=== PATIENT | female | born 1975 | race African-American/Black ===

== ENCOUNTER 2024-10-15 21:08 | Inpatient (IN) | payer BC, MEDICAID ==
[~2024-10-15] VITALS: Ht 170.2 cm; Wt 152.6 kg
[2024-10-15 22:05] LABS: HEMATOCRIT. 53.7 % (36.0-48.0); MEAN CORPUSCULAR HEMOGLOBIN 26.7 pg (28.0-32.0); MEAN CORPUSCULAR HGB CONC 26.2 g/dL (31.0-37.0); MEAN CORPUSCULAR VOLUME 101.9 fL (81.0-99.0); MEAN PLATELET VOLUME 11.7 fl (7.4-10.4); PLATELET 284 x1000/uL (130-400); RED BLOOD CELL COUNT 5.27 mill/uL (4.2-5.4); RED CELL DISTRIBUTION WIDTH 15.4 % (11.6-14.6); WHITE BLOOD COUNT 15.1 x1000/uL (4.5-11.0)
[2024-10-15 22:14] LABS: CHLORIDE 100 mEq/L (98-107)
[2024-10-15 22:15] LABS: CARBON DIOXIDE 16 mEq/L (21-32)
[2024-10-15 22:16] LABS: CALCIUM 8.8 mg/dL (8.7-10.4)
[2024-10-15 22:17] LABS: DIFFERENTIAL COMMENT 1
[2024-10-15 22:20] LABS: UREA NITROGEN BLOOD 87 mg/dL (9-23)
[2024-10-15 22:21] LABS: ETHANOL BLOOD < 10 mg/dL (<10)
[2024-10-15 22:22] LABS: AMMONIA 58 uMol/L (<32)
[2024-10-15 22:26] LABS: CLARITY URINE CLOUDY (CLEAR); COLOR URINE YELLOW (YELLOW); GLUCOSE URINE 3+ (NEGATIVE); KETONES URINE NEGATIVE (NEGATIVE); LEUKOCYTE ESTERASE URINE TRACE (NEGATIVE); NITRITE URINE NEGATIVE (NEGATIVE); OCCULT BLOOD URINE 1+ (NEGATIVE); PROTEIN URINE TRACE (NEGATIVE); SPECIFIC GRAVITY URINE 1.032 (1.005-1.030); UROBILINOGEN URINE 0.2 E.U./dL (0.2-1.0)
[2024-10-15 22:30] LABS: SODIUM 144 mEq/L (136-145)
[2024-10-15 22:33] LABS: *AMPHETAMINES SCREEN URINE NEGATIVE (NEGATIVE); *BARBITURATES SCREEN URINE NEGATIVE (NEGATIVE); *BENZODIAZEPINES SCREEN URINE NEGATIVE (NEGATIVE); *COCAINE SCREEN URINE NEGATIVE (NEGATIVE); CANNABINOID URINE SCREEN NEGATIVE (NEGATIVE); ECSTASY MDMA SCREEN URINE NEGATIVE (NEGATIVE); METHADONE URINE SCREEN NEGATIVE (NEGATIVE); OPIATES URINE SCREEN NEGATIVE (NEGATIVE); PHENCYCLIDINE URINE SCREEN NEGATIVE (NEGATIVE)
[2024-10-15 22:34] LABS: GLUCOSE 1462 mg/dL (70-105); POTASSIUM 6.2 mEq/L (3.5-5.1)
[2024-10-15 22:35] LABS: CREATININE 6.1 mg/dL (0.6-1.0); TROPONIN I HIGH SENSITIVITY 44 ng/L (3.0-34)
[2024-10-15 22:36] LABS: LACTIC ACID 7.1 mmol/L (0.4-2.0)
[2024-10-15] MEDS ORDERED: SODIUM POLYSTYRENE SULFONATE 15 G/60 ML BOT PO ONE (23:00)
[2024-10-15] MEDS ORDERED: INSULIN REGULAR (HUMULIN R) 1000UNITS/10ML VIAL IV ONE ×2 (23:00)
[2024-10-15] MEDS ORDERED: DEXTROSE 50% WATER 50ML SYRINGE IV NR ×2 (23:00→23:15)
[2024-10-15] MEDS ORDERED: DEXTROSE 50% WATER 50ML SYRINGE IV ONE (23:00)
[2024-10-15] MEDS ORDERED: SODIUM BICARBONATE 8.4% 50MEQ/50ML SYR IV ONE (23:00)
[2024-10-15] MEDS ORDERED: IPRATROPIUM/ALBUTEROL 0.5-3(2.5)MG/3ML NEB HHN PRN (23:15)
[2024-10-15] MEDS: SODIUM POLYSTYRENE SULFONATE 15 G/60 ML BOT PO NR (23:15)
[2024-10-15] MEDS ORDERED: CLONIDINE 0.1MG TABLET PO PRN (23:15)
[2024-10-15] MEDS ORDERED: DOCUSATE SODIUM 100MG CAPSULE PO PRN (23:15)
[2024-10-15] MEDS ORDERED: ZOLPIDEM TARTRATE 5MG TABLET PO PRN (23:15)
[2024-10-15] MEDS ORDERED: MAGNESIUM/ALUMINUM HYDROXIDE/SIMETHICONE 30ML UDC PO PRN (23:15)
[2024-10-15] MEDS: CEFTRIAXONE 1GM/50ML 50 ML IV NR (23:15)
[2024-10-15] MEDS ORDERED: ONDANSETRON HCL 4MG/2ML INJ IV PRN (23:15)
[2024-10-15] MEDS: INSULIN REGULAR (HUMULIN R) 1000UNITS/10ML VIAL IV NR (23:20)
[2024-10-15] MEDS: INSULIN REGULAR (HUMULIN R) 1000UNITS/10ML VIAL IV ONE (23:20)
[2024-10-15] MEDS: SODIUM BICARBONATE 8.4% 50MEQ/50ML SYR IV NR (23:21)
[2024-10-15] MEDS: PANTOPRAZOLE SODIUM 40 MG/VIAL IV NR (23:22)
[2024-10-15] MEDS: CALCIUM CHLORIDE 1GM/10ML SYR IV NR (23:34)
[2024-10-15] MEDS: SODIUM CHLORIDE 0.9% 1,000 ML IV SCH (23:37)
[2024-10-15 23:48] LABS: BACTERIA URINE 3+; FINE GRANULAR CASTS URINE 0-5 /lpf; SQUAMOUS EPITHELIAL CELL URINE 1+ /lpf (RARE/1+); WBC URINE 0-2 /hpf (0-2)
[2024-10-15] MEDS: NOREPINEPHRINE 8MG/250ML PMX 250 ML IV NR (23:55)
[2024-10-15 23:57] LABS: CHLORIDE 110 mEq/L (98-107); POTASSIUM 5.2 mEq/L (3.5-5.1); SODIUM 150 mEq/L (136-145)
[2024-10-15 23:58] LABS: CALCIUM 7.7 mg/dL (8.7-10.4); CARBON DIOXIDE 15 mEq/L (21-32)
[2024-10-16] VITALS (93 sets, daily range): BP systolic 55–167; BP diastolic 33–95; PULSE 77–123; RESP 0–37; TEMP 37.6; O2SAT 91–100
[2024-10-16] MEDS ORDERED: INSULIN REGULAR 100U/100ML PMX 100 ML IV SCH
[2024-10-16 00:02] LABS: URIC ACID 19.9 mg/dL (3.1-7.8)
[2024-10-16 00:03] LABS: UREA NITROGEN BLOOD 72 mg/dL (9-23)
[2024-10-16 00:05] LABS: PHOSPHORUS 7.8 mg/dL (2.5-4.9)
[2024-10-16 00:08] LABS: ALANINE AMINOTRANSFERASE 11 IU/L (10-49); ALBUMIN 3.1 g/dL (3.2-4.8); ASPARTATE AMINOTRANSFERASE 17 IU/L (<34); BETA HYDROXYBUTYRATE 4.8 mMol/L (0.0-0.3); BILIRUBIN DIRECT 0.1 mg/dL (<=3.0); BILIRUBIN TOTAL 0.3 mg/dL (0.1-1.0); PROTEIN TOTAL 7.8 g/dL (6.0-8.3)
[2024-10-16 00:10] LABS: FOLIC ACID (FOLATE) SERUM 17.47 ng/mL (>5.38); VITAMIN B12 SERUM 1021 pg/mL (211-911)
[2024-10-16] MEDS ORDERED: DEXT 5%/LACTATED RINGERS 1,000 ML IV SCH (00:15)
[2024-10-16] MEDS ORDERED: POTASSIUM CHLORIDE 40 MEQ in SODIUM CHLORIDE 0.9% 230 ML IV PRN (00:15)
[2024-10-16] MEDS ORDERED: BLOOD SUGAR DIAGNOSTIC STRIP TEST PRN ×2 (00:15)
[2024-10-16] MEDS ORDERED: INSULIN REGULAR 100U/100ML PMX 100 ML IV ONE ×2 (00:15→00:30)
[2024-10-16] MEDS ORDERED: SODIUM PHOSPHATE 15 MMOL in SODIUM CHLORIDE 0.9% 245 ML IV PRN (00:15)
[2024-10-16] MEDS ORDERED: MAGNESIUM 2 G PREMIX 50 ML IV PRN (00:15)
[2024-10-16] MEDS ORDERED: DEXTROSE 50% WATER 50ML SYRINGE IV PRN ×2 (00:15)
[2024-10-16 00:19] LABS: ANISOCYTOSIS 1+; PLATELET ESTIMATE NORMAL
[2024-10-16 00:26] LABS: TROPONIN I HIGH SENSITIVITY 38 ng/L (3.0-34)
[2024-10-16 00:27] LABS: CREATININE 5.5 mg/dL (0.6-1.0)
[2024-10-16 00:28] LABS: GLUCOSE 1523 mg/dL (70-105)
[2024-10-16 00:29] LABS: BG BASE EXCESS -10.2 mmol/L (-2.0-3.0); BG CARBOXYHEMOGLOBIN 0.3 % (0.5-1.5); BG DEOXYHEMOGLOBIN 6.1 % (0.0-5.0); BG FRACTION INSPIRED OXYGEN 40; BG HCO3 ACT 15.3 mmol/L (21.0-28.0); BG OXYGEN SATURATION 93.9 % (94.0-98.0); BG OXYHEMOGLOBIN 93.6 % (94.0-98.0); BG PCO2 32.9 mmHg (32.0-45.0); BG PH 7.284 (7.350-7.450); BG PO2 79.3 mmHg (83.0-108.0); BG SAMPLE SITE RIGHT BRACHIAL; BG TOTAL HEMOGLOBIN 14.5 g/dL (12.0-16.0); BG VENT MODE NASAL CANNULA
[2024-10-16] MEDS: LACTATED RINGERS 1,000 ML IV SCH (01:43)
[2024-10-16] MEDS ORDERED: LEVETIRACETAM 1,000MG in NACL 100ML PREMIX IV SCH (02:00)
[2024-10-16] MEDS: BLOOD SUGAR DIAGNOSTIC STRIP TEST SCH (02:00)
[2024-10-16] MEDS ORDERED: PHENYLEPHRINE 50MG/250ML PMX 250 ML IV PRN (02:00)
[2024-10-16] MEDS ORDERED: PHENYLEPHRINE 50 MG in DEXTROSE 5% WATER 250 ML IV PRN (02:00)
[2024-10-16] MEDS: SODIUM CHLORIDE 0.9% 1,000 ML IV SCH (02:00)
[2024-10-16] MEDS ORDERED: MIDAZOLAM 100MG/100ML PMX 100 ML IV PRN ×3 (02:15→05:21)
[2024-10-16] MEDS ORDERED: FENTANYL 2500MCG/250ML PMX 250 ML IV PRN (02:15)
[2024-10-16] MEDS ORDERED: NOREPINEPHRINE 8MG/250ML PMX 250 ML IV PRN ×2 (02:30→03:45)
[2024-10-16] MEDS: PIPERACILLIN/TAZO 3.375G/50ML 50 ML IV SCH (03:00)
[2024-10-16] MEDS: FENTANYL CITRATE 2,500 MCG in SODIUM CHLORIDE 0.9% 200 ML IV PRN (03:25)
[2024-10-16] MEDS: VANCOMYCIN 2,000 MG in DEXT 5% WATER 500 ML IV NR (03:37)
[2024-10-16] MEDS: LEVETIRACETAM 1500MG PREMIX 100 ML IV NR (03:38)
[2024-10-16] MEDS: INSULIN REGULAR 100U/100ML PMX 100 ML IV SCH (03:38)
[2024-10-16] MEDS: MIDAZOLAM 100MG/100ML PMX 100 ML IV PRN ×2 (04:21→13:24)
[2024-10-16] MEDS ORDERED: PHENYLEPHRINE 100 MG in DEXT 5% WATER 240 ML IV PRN (04:30)
[2024-10-16] MEDS ORDERED: NOREPINEPHRINE 32 MG in DEXT 5% WATER 218 ML IV PRN (04:30)
[2024-10-16] MEDS: LORAZEPAM 2MG/ML INJ IV NR (04:36)
[2024-10-16] MEDS: VASOPRESSIN 20 UNIT in SODIUM CHLORIDE 0.9% 99 ML IV PRN (04:55)
[2024-10-16] MEDS: PHENYLEPHRINE 100 MG in DEXT 5% WATER 240 ML IV PRN (04:58)
[2024-10-16] MEDS: NOREPINEPHRINE 32 MG in DEXT 5% WATER 218 ML IV PRN (04:59)
[2024-10-16 05:10] LABS: BG BASE EXCESS -8.8 mmol/L (-2.0-3.0); BG CARBOXYHEMOGLOBIN 0.2 % (0.5-1.5); BG DEOXYHEMOGLOBIN 7.7 % (0.0-5.0); BG FRACTION INSPIRED OXYGEN 100; BG HCO3 ACT 19.2 mmol/L (21.0-28.0); BG METHEMOGLOBIN 0.6 % (0.5-1.5); BG OXYGEN SATURATION 92.2 % (94.0-98.0); BG OXYHEMOGLOBIN 91.5 % (94.0-98.0); BG PCO2 49.7 mmHg (32.0-45.0); BG PH 7.205 (7.350-7.450); BG PO2 74.8 mmHg (83.0-108.0); BG SAMPLE SITE ALINE; BG TOTAL HEMOGLOBIN 13.7 g/dL (12.0-16.0); BG VENT MODE VENT - AC
[2024-10-16 05:12] LABS: AMMONIA 31 uMol/L (<32)
[2024-10-16 05:24] LABS: CARBON DIOXIDE 23 mEq/L (21-32); CHLORIDE 114 mEq/L (98-107); POTASSIUM 5.2 mEq/L (3.5-5.1); SODIUM 155 mEq/L (136-145)
[2024-10-16 05:25] LABS: CALCIUM 8.4 mg/dL (8.7-10.4); HEMATOCRIT. 47.7 % (36.0-48.0); MEAN CORPUSCULAR HEMOGLOBIN 27.1 pg (28.0-32.0); MEAN CORPUSCULAR HGB CONC 27.3 g/dL (31.0-37.0); MEAN CORPUSCULAR VOLUME 99.2 fL (81.0-99.0); MEAN PLATELET VOLUME 11.2 fl (7.4-10.4); PLATELET 240 x1000/uL (130-400); RED BLOOD CELL COUNT 4.81 mill/uL (4.2-5.4); RED CELL DISTRIBUTION WIDTH 15.2 % (11.6-14.6); WHITE BLOOD COUNT 20.6 x1000/uL (4.5-11.0)
[2024-10-16 05:30] LABS: CREATINE KINASE MB FRACTION 5.3 ng/mL (0.5-3.6)
[2024-10-16] MEDS ORDERED: FENTANYL 2500MCG/250ML PMX 250 ML IV ONE (05:30)
[2024-10-16] MEDS: SODIUM CHLORIDE 0.45% 1,000 ML IV SCH (05:52)
[2024-10-16] MEDS: PROPOFOL 10MG/ML 100ML 100 ML IV SCH (05:53)
[2024-10-16] MEDS ORDERED: DEXT 5%/0.45% NACL 1000ML 1,000 ML IV SCH (06:30)
[2024-10-16] MEDS: ACETAMINOPHEN 1000MG/100ML 100 ML IV NR (06:32)
[2024-10-16 06:37] LABS: D-DIMER 13.77 mg/L FEU (<0.50); INR 1.1; PARTIAL THROMBOPLASTIN TIME 21.3 sec (23.4-31.0)
[2024-10-16] MEDS: IPRATROPIUM/ALBUTEROL 0.5-3(2.5)MG/3ML NEB HHN SCH (08:00)
[2024-10-16 08:07] LABS: DIFFERENTIAL COMMENT 1
[2024-10-16] MEDS: ENOXAPARIN 30MG/0.3ML SYR SUBCUT SCH (08:19)
[2024-10-16 08:22] LABS: HEPATITIS B SURFACE ANTIGEN NEGATIVE (Negative)
[2024-10-16 08:42] LABS: TRIGLYCERIDE 194 mg/dL (0-150); UREA NITROGEN BLOOD 78 mg/dL (9-23)
[2024-10-16 08:43] LABS: HEPATITIS C AB NON REACTIVE (Neg) (Negative); LDL CHOLESTEROL 30 mg/dL (5-100)
[2024-10-16 08:44] LABS: CHOLESTEROL 73 mg/dL (<200); HDL CHOLESTEROL < 20 mg/dL (>65)
[2024-10-16 08:46] LABS: T4 FREE 1.08 ng/dL (0.89-1.76)
[2024-10-16 08:47] LABS: THYROID STIMULATING HORMONE 0.54 uIU/mL (0.55-4.78)
[2024-10-16 08:52] LABS: CREATININE 6.2 mg/dL (0.6-1.0)
[2024-10-16 08:55] LABS: GLUCOSE 1243 mg/dL (70-105)
[2024-10-16 08:56] LABS: PHOSPHORUS 9.6 mg/dL (2.5-4.9)
[2024-10-16] MEDS: LEVETIRACETAM 1000MG PREMIX 100 ML IV SCH (09:00)
[2024-10-16] MEDS: PANTOPRAZOLE SODIUM 40 MG/VIAL IV SCH (09:00)
[2024-10-16] MEDS ORDERED: PANTOPRAZOLE SODIUM 40 MG/VIAL IV SCH (09:00)
[2024-10-16 09:24] LABS: HEMATOCRIT 49.1 % (36.0-48.0); HEMOGLOBIN 13.9 g/dL (12.0-16.0); MEAN CORPUSCULAR HEMOGLOBIN 26.7 pg (28.0-32.0); MEAN CORPUSCULAR HGB CONC 28.4 g/dL (31.0-37.0); MEAN CORPUSCULAR VOLUME 93.9 fL (81.0-99.0); PLATELET 200 x1000/uL (130-400); RED BLOOD CELL COUNT 5.23 mill/uL (4.2-5.4); RED CELL DISTRIBUTION WIDTH 15.2 % (11.6-14.6); WHITE BLOOD COUNT 22.1 x1000/uL (4.5-11.0)
[2024-10-16 09:31] LABS: CHLORIDE 118 mEq/L (98-107); POTASSIUM 5.1 mEq/L (3.5-5.1)
[2024-10-16 09:32] LABS: CALCIUM 8.3 mg/dL (8.7-10.4); CARBON DIOXIDE 17 mEq/L (21-32)
[2024-10-16 09:37] LABS: UREA NITROGEN BLOOD 70 mg/dL (9-23)
[2024-10-16 09:39] LABS: ALANINE AMINOTRANSFERASE 22 IU/L (10-49); ALBUMIN 3.2 g/dL (3.2-4.8); ASPARTATE AMINOTRANSFERASE 75 IU/L (<34)
[2024-10-16 09:40] LABS: BILIRUBIN TOTAL < 0.2 mg/dL (0.1-1.0); PROTEIN TOTAL 7.9 g/dL (6.0-8.3)
[2024-10-16 09:53] LABS: CREATININE 6.6 mg/dL (0.6-1.0)
[2024-10-16 09:54] LABS: GLUCOSE 797 mg/dL (70-105); SODIUM 158 mEq/L (136-145)
[2024-10-16] MEDS: IPRATROPIUM/ALBUTEROL 0.5-3(2.5)MG/3ML NEB HHN NR (11:59)
[2024-10-16 12:33] LABS: CHLORIDE 119 mEq/L (98-107); POTASSIUM 4.4 mEq/L (3.5-5.1)
[2024-10-16 12:35] LABS: CARBON DIOXIDE 19 mEq/L (21-32)
[2024-10-16] MEDS: KCL 20MEQ/100ML PREMIX 100 ML IV PRN (13:07)
[2024-10-16 13:29] LABS: SODIUM 160 mEq/L (136-145)
[2024-10-16 14:09] LABS: PLATELET ESTIMATE NORMAL
[2024-10-16 16:31] LABS: POTASSIUM 4.4 mEq/L (3.5-5.1)
[2024-10-16 16:33] LABS: CALCIUM 8.3 mg/dL (8.7-10.4)
[2024-10-16 16:39] LABS: CREATINE KINASE MB FRACTION 8.8 ng/mL (0.5-3.6)
[2024-10-16 16:40] LABS: PHOSPHORUS 6.6 mg/dL (2.5-4.9)
[2024-10-16 16:53] LABS: CREATININE 7.3 mg/dL (0.6-1.0)
[2024-10-16] MEDS: MEROPENEM 500MG/50ML 50 ML IV SCH (17:12)
[2024-10-16 17:36] LABS: BG BASE EXCESS -9.2 mmol/L (-2.0-3.0); BG FRACTION INSPIRED OXYGEN 80; BG HCO3 ACT 17.2 mmol/L (21.0-28.0); BG PCO2 39.5 mmHg (32.0-45.0); BG PH 7.258 (7.350-7.450); BG PO2 67.6 mmHg (83.0-108.0); BG SAMPLE SITE ALINE; BG VENT MODE VENT - AC
[2024-10-16] MEDS: DEXTROSE 5% WATER 1,000 ML IV SCH (20:16)
[2024-10-16 21:07] LABS: CHLORIDE 120 mEq/L (98-107); POTASSIUM 4.2 mEq/L (3.5-5.1)
[2024-10-16 21:08] LABS: CARBON DIOXIDE 18 mEq/L (21-32)
[2024-10-16 21:09] LABS: CALCIUM 7.6 mg/dL (8.7-10.4)
[2024-10-16 21:13] LABS: GLUCOSE 186 mg/dL (70-105)
[2024-10-16 21:14] LABS: UREA NITROGEN BLOOD 78 mg/dL (9-23)
[2024-10-16 21:16] LABS: PHOSPHORUS 6.7 mg/dL (2.5-4.9)
[2024-10-16 21:20] LABS: CREATININE 6.8 mg/dL (0.6-1.0); SODIUM 158 mEq/L (136-145)
[2024-10-17] VITALS (101 sets, daily range): BP systolic 69–173; BP diastolic 51–153; PULSE 71–109; RESP 10–45; TEMP 36.7–37.6; O2SAT 95–100
[2024-10-17 00:44] LABS: CHLORIDE 120 mEq/L (98-107); POTASSIUM 4.2 mEq/L (3.5-5.1); SODIUM 155 mEq/L (136-145)
[2024-10-17 00:45] LABS: CALCIUM 7.4 mg/dL (8.7-10.4); CARBON DIOXIDE 18 mEq/L (21-32)
[2024-10-17 00:50] LABS: GLUCOSE 185 mg/dL (70-105); UREA NITROGEN BLOOD 77 mg/dL (9-23)
[2024-10-17 00:52] LABS: CREATININE 6.7 mg/dL (0.6-1.0); PHOSPHORUS 6.5 mg/dL (2.5-4.9)
[2024-10-17] MEDS: CALCIUM GLUCONATE 1GM PREMIX 50 ML IV NR (02:00)
[2024-10-17] MEDS ORDERED: PROPOFOL 10MG/ML 100ML 100 ML IV PRN (05:00)
[2024-10-17 05:44] LABS: BASOPHILS % 0.2 % (0.0-2.0); DIFFERENTIAL COMMENT 0; EOSINOPHILS % 0.1 % (0.0-5.0); HEMATOCRIT. 38.4 % (36.0-48.0); HEMOGLOBIN. 11.9 g/dL (12.0-16.0); LYMPHOCYTES % 9.9 % (20.0-50.0); MEAN CORPUSCULAR HEMOGLOBIN 26.8 pg (28.0-32.0); MEAN CORPUSCULAR HGB CONC 30.9 g/dL (31.0-37.0); MEAN CORPUSCULAR VOLUME 86.8 fL (81.0-99.0); MEAN PLATELET VOLUME 9.7 fl (7.4-10.4); MONOCYTES % 8.3 % (2.0-8.0); NEUTROPHILS % 81.5 % (40.0-76.0); PLATELET 86 x1000/uL (130-400); RED BLOOD CELL COUNT 4.42 mill/uL (4.2-5.4); RED CELL DISTRIBUTION WIDTH 14.4 % (11.6-14.6); WHITE BLOOD COUNT 21.6 x1000/uL (4.5-11.0)
[2024-10-17 05:59] LABS: LACTIC ACID 2.9 mmol/L (0.4-2.0)
[2024-10-17 06:00] LABS: CARBON DIOXIDE 19 mEq/L (21-32); CHLORIDE 117 mEq/L (98-107); POTASSIUM 4.8 mEq/L (3.5-5.1); SODIUM 151 mEq/L (136-145)
[2024-10-17 06:01] LABS: CALCIUM 7.4 mg/dL (8.7-10.4)
[2024-10-17 06:06] LABS: GLUCOSE 226 mg/dL (70-105); TRIGLYCERIDE 175 mg/dL (0-150); UREA NITROGEN BLOOD 77 mg/dL (9-23)
[2024-10-17 06:08] LABS: PHOSPHORUS 6.3 mg/dL (2.5-4.9)
[2024-10-17 08:01] LABS: CREATININE 6.5 mg/dL (0.6-1.0)
[2024-10-17 08:04] LABS: CREATINE KINASE 10945 IU/L (34-145); TROPONIN I HIGH SENSITIVITY 834 ng/L (3.0-34)
[2024-10-17 09:20] LABS: BG BASE EXCESS -10.5 mmol/L (-2.0-3.0); BG CARBOXYHEMOGLOBIN 0.4 % (0.5-1.5); BG DEOXYHEMOGLOBIN 2.6 % (0.0-5.0); BG FRACTION INSPIRED OXYGEN 80; BG METHEMOGLOBIN 0.2 % (0.5-1.5); BG OXYGEN SATURATION 97.4 % (94.0-98.0); BG OXYHEMOGLOBIN 96.8 % (94.0-98.0); BG PCO2 32.3 mmHg (32.0-45.0); BG PH 7.285 (7.350-7.450); BG PO2 99.8 mmHg (83.0-108.0); BG SAMPLE SITE ALINE; BG TOTAL HEMOGLOBIN 12.9 g/dL (12.0-16.0); BG VENT MODE VENT - AC
[2024-10-17 10:15] LABS: CARBON DIOXIDE 18 mEq/L (21-32); CHLORIDE 113 mEq/L (98-107); POTASSIUM 4.7 mEq/L (3.5-5.1); SODIUM 146 mEq/L (136-145)
[2024-10-17 10:16] LABS: CALCIUM 7.5 mg/dL (8.7-10.4)
[2024-10-17 10:21] LABS: GLUCOSE 252 mg/dL (70-105); UREA NITROGEN BLOOD 83 mg/dL (9-23)
[2024-10-17 10:23] LABS: PHOSPHORUS 7.2 mg/dL (2.5-4.9)
[2024-10-17 10:25] LABS: CREATININE 6.9 mg/dL (0.6-1.0)
[2024-10-17] MEDS: SODIUM BICARBONATE 8.4% 50MEQ/50ML SYR IV SCH (10:25)
[2024-10-17] MEDS: HYDROCORTISONE SOD SUCCINATE 100 MG/2 ML VIAL IV NR (10:25)
[2024-10-17] MEDS: LIDOCAINE HCL 1% 10 MG/ML 10ML VIAL ONE (12:01)
[2024-10-17] MEDS: VANCOMYCIN 1GM/200ML PMX (BAXTER) IV SCH (12:29)
[2024-10-17 14:15] LABS: CARBON DIOXIDE 20 mEq/L (21-32); CHLORIDE 111 mEq/L (98-107); POTASSIUM 5.2 mEq/L (3.5-5.1); SODIUM 148 mEq/L (136-145)
[2024-10-17 14:16] LABS: CALCIUM 7.2 mg/dL (8.7-10.4)
[2024-10-17 14:21] LABS: GLUCOSE 309 mg/dL (70-105); UREA NITROGEN BLOOD 85 mg/dL (9-23)
[2024-10-17 14:23] LABS: PHOSPHORUS 7.3 mg/dL (2.5-4.9)
[2024-10-17 14:40] LABS: CREATININE 6.9 mg/dL (0.6-1.0)
[2024-10-17] MEDS: DEXT 5%/0.45% NACL 1000ML 1,000 ML IV SCH (16:08)
[2024-10-17] MEDS ORDERED: [UNRECOGNIZED DRUG - REMARK] XX SCH (16:15)
[2024-10-17] MEDS: HEPARIN 80 UNITS/KG BOLUS IV NR (17:01)
[2024-10-17 17:47] LABS: CARBON DIOXIDE 19 mEq/L (21-32); CHLORIDE 109 mEq/L (98-107); POTASSIUM 5.4 mEq/L (3.5-5.1); SODIUM 146 mEq/L (136-145)
[2024-10-17 17:48] LABS: CALCIUM 7.1 mg/dL (8.7-10.4)
[2024-10-17 17:53] LABS: GLUCOSE 305 mg/dL (70-105); UREA NITROGEN BLOOD 85 mg/dL (9-23)
[2024-10-17 17:55] LABS: PHOSPHORUS 6.7 mg/dL (2.5-4.9)
[2024-10-17] MEDS: HEPARIN 25,000 UNITS PREMIX 250 ML IV SCH (18:33)
[2024-10-17] MEDS: SODIUM BICARBONATE 8.4% 50MEQ/50ML SYR IV NR (18:34)
[2024-10-17 20:35] LABS: BG BASE EXCESS -5.3 mmol/L (-2.0-3.0); BG CARBOXYHEMOGLOBIN 0.3 % (0.5-1.5); BG DEOXYHEMOGLOBIN 1.8 % (0.0-5.0); BG FRACTION INSPIRED OXYGEN 80; BG HCO3 ACT 18.6 mmol/L (21.0-28.0); BG METHEMOGLOBIN 0.5 % (0.5-1.5); BG OXYGEN SATURATION 98.2 % (94.0-98.0); BG OXYHEMOGLOBIN 97.4 % (94.0-98.0); BG PCO2 30.9 mmHg (32.0-45.0); BG PH 7.398 (7.350-7.450); BG PO2 116.7 mmHg (83.0-108.0); BG SAMPLE SITE ALINE; BG TOTAL HEMOGLOBIN 10.1 g/dL (12.0-16.0); BG VENT MODE VENT - AC
[2024-10-17 21:07] LABS: CHLORIDE 109 mEq/L (98-107); POTASSIUM 4.6 mEq/L (3.5-5.1); SODIUM 148 mEq/L (136-145)
[2024-10-17 21:08] LABS: CALCIUM 6.5 mg/dL (8.7-10.4); CARBON DIOXIDE 22 mEq/L (21-32)
[2024-10-17 21:13] LABS: GLUCOSE 221 mg/dL (70-105); UREA NITROGEN BLOOD 88 mg/dL (9-23)
[2024-10-17 21:15] LABS: PHOSPHORUS 6.2 mg/dL (2.5-4.9)
[2024-10-17 21:25] LABS: CREATININE 6.8 mg/dL (0.6-1.0)
[2024-10-17] MEDS ORDERED: HEPARIN BOLUS PRN aPTT <36 IV (23:00)
[2024-10-18] VITALS (110 sets, daily range): BP systolic 68–223; BP diastolic 48–127; PULSE 68–153; RESP 0–38; TEMP 37.503–39.2; O2SAT 89–100
[2024-10-18 00:03] LABS: CHLORIDE 112 mEq/L (98-107); POTASSIUM 4.9 mEq/L (3.5-5.1); SODIUM 147 mEq/L (136-145)
[2024-10-18 00:04] LABS: CARBON DIOXIDE 23 mEq/L (21-32)
[2024-10-18 00:09] LABS: GLUCOSE 207 mg/dL (70-105); UREA NITROGEN BLOOD 87 mg/dL (9-23)
[2024-10-18 01:05] LABS: PHOSPHORUS 5.9 mg/dL (2.5-4.9)
[2024-10-18 01:19] LABS: CREATININE 6.5 mg/dL (0.6-1.0)
[2024-10-18] MEDS: HEPARIN BOLUS PRN aPTT 37-44 IV (01:30)
[2024-10-18] MEDS: ACETAMINOPHEN 325MG TABLET PO PRN ×2 (04:03→22:09)
[2024-10-18 05:10] LABS: CHLORIDE 111 mEq/L (98-107); POTASSIUM 5.2 mEq/L (3.5-5.1); SODIUM 146 mEq/L (136-145)
[2024-10-18 05:11] LABS: CARBON DIOXIDE 22 mEq/L (21-32)
[2024-10-18 05:16] LABS: AMMONIA 34 uMol/L (<32); GLUCOSE 203 mg/dL (70-105); UREA NITROGEN BLOOD 88 mg/dL (9-23)
[2024-10-18 05:18] LABS: ALANINE AMINOTRANSFERASE 65 IU/L (10-49); ALBUMIN 2.4 g/dL (3.2-4.8); ASPARTATE AMINOTRANSFERASE 221 IU/L (<34); BILIRUBIN DIRECT 0.3 mg/dL (<=3.0); BILIRUBIN TOTAL 0.6 mg/dL (0.1-1.0); PHOSPHORUS 5.3 mg/dL (2.5-4.9); PROTEIN TOTAL 5.9 g/dL (6.0-8.3)
[2024-10-18 05:22] LABS: HEMATOCRIT. 31.3 % (36.0-48.0); HEMOGLOBIN. 9.7 g/dL (12.0-16.0); MEAN CORPUSCULAR HEMOGLOBIN 26.7 pg (28.0-32.0); MEAN CORPUSCULAR HGB CONC 31.1 g/dL (31.0-37.0); MEAN CORPUSCULAR VOLUME 85.7 fL (81.0-99.0); MEAN PLATELET VOLUME 9.9 fl (7.4-10.4); PLATELET 51 x1000/uL (130-400); RED BLOOD CELL COUNT 3.65 mill/uL (4.2-5.4); WHITE BLOOD COUNT 18.5 x1000/uL (4.5-11.0)
[2024-10-18 06:02] LABS: CREATININE 6.6 mg/dL (0.6-1.0)
[2024-10-18 06:03] LABS: DIFFERENTIAL COMMENT 1
[2024-10-18 06:04] LABS: TROPONIN I HIGH SENSITIVITY 1940 ng/L (3.0-34)
[2024-10-18] MEDS ORDERED: LIDOCAINE HCL 1% 10 MG/ML 10ML VIAL ONE (08:27)
[2024-10-18] MEDS ORDERED: HEPARIN 1000 UNITS/ML 10ML ONE (08:28)
[2024-10-18 10:18] LABS: CHLORIDE 106 mEq/L (98-107); POTASSIUM 5.4 mEq/L (3.5-5.1); SODIUM 143 mEq/L (136-145)
[2024-10-18 10:19] LABS: CARBON DIOXIDE 22 mEq/L (21-32)
[2024-10-18 10:24] LABS: GLUCOSE 180 mg/dL (70-105); UREA NITROGEN BLOOD 94 mg/dL (9-23)
[2024-10-18 10:27] LABS: PHOSPHORUS 5.7 mg/dL (2.5-4.9)
[2024-10-18 10:29] LABS: INR 1.2; PARTIAL THROMBOPLASTIN TIME 65.4 sec (23.4-31.0); PROTHROMBIN TIME 12.6 sec (9.6-11.0)
[2024-10-18 10:41] LABS: CREATININE 7.1 mg/dL (0.6-1.0); LACTIC ACID 2.5 mmol/L (0.4-2.0)
[2024-10-18 11:26] LABS: CALCIUM 6.8 mg/dL (8.7-10.4)
[2024-10-18 11:38] LABS: HEPATITIS B SURFACE ANTIGEN NEGATIVE (Negative)
[2024-10-18 11:58] LABS: HEPATITIS A AB IGM NEGATIVE (Negative)
[2024-10-18 11:59] LABS: HEPATITIS B CORE AB IGM NEGATIVE (Negative)
[2024-10-18 12:00] LABS: HEPATITIS C AB NON REACTIVE (Neg) (Negative)
[2024-10-18] MEDS: LACTATED RINGERS 1,000 ML IV ONE (15:15)
[2024-10-18] MEDS: SODIUM CHLORIDE 0.9% 250 ML IV ONE (15:15)
[2024-10-18 15:27] LABS: NUCLEATED RED BLOOD CELLS 4 /100 WBC; PLATELET ESTIMATE DECREASED
[2024-10-18] MEDS ORDERED: FLUCONAZOLE 200MG/100ML PREMIX IV ONE (16:00)
[2024-10-18 16:13] LABS: CHLORIDE 104 mEq/L (98-107); POTASSIUM 4.7 mEq/L (3.5-5.1); SODIUM 141 mEq/L (136-145)
[2024-10-18 16:14] LABS: CARBON DIOXIDE 26 mEq/L (21-32)
[2024-10-18 16:19] LABS: CREATININE 4.6 mg/dL (0.6-1.0); GLUCOSE 208 mg/dL (70-105); UREA NITROGEN BLOOD 61 mg/dL (9-23)
[2024-10-18] MEDS: FLUCONAZOLE 200 MG/100ML BAG 100 ML IV NR (17:24)
[2024-10-18 17:30] LABS: HEMATOCRIT 44.2 % (36.0-48.0); HEMOGLOBIN 12.5 g/dL (12.0-16.0)
[2024-10-18] MEDS ORDERED: VANCOMYCIN 1GM/200ML PMX (BAXTER) IV SCH (18:00)
[2024-10-18] MEDS: INSULIN REGULAR 100U/100ML PMX 100 ML IV SCH (20:48)
[2024-10-18] MEDS: VANCOMYCIN 1GM/200ML PMX (BAXTER) IV SCH (21:56)
[2024-10-18 22:03] LABS: CHLORIDE 103 mEq/L (98-107); POTASSIUM 5.9 mEq/L (3.5-5.1); SODIUM 134 mEq/L (136-145)
[2024-10-18 22:04] LABS: CALCIUM 6.3 mg/dL (8.7-10.4); CARBON DIOXIDE 23 mEq/L (21-32)
[2024-10-18 22:09] LABS: GLUCOSE 387 mg/dL (70-105); UREA NITROGEN BLOOD 66 mg/dL (9-23)
[2024-10-18 22:10] LABS: CREATININE 5.1 mg/dL (0.6-1.0)
[2024-10-18 22:11] LABS: PHOSPHORUS 4.6 mg/dL (2.5-4.9)
[2024-10-18] MEDS ORDERED: HEPARIN 25,000 UNITS PREMIX 250 ML IV SCH (22:45)
[2024-10-18] MEDS: SODIUM CHLORIDE 0.9% 1,000 ML IV SCH (23:08)
[2024-10-18] MEDS: SODIUM ZIRCONIUM CYCLOSILICATE 10GM/PACKET PO NR (23:08)
[2024-10-19] VITALS (114 sets, daily range): BP systolic 81–199; BP diastolic 42–123; PULSE 103–142; RESP 0–35; TEMP 37.4–39.4; O2SAT 89–99
[2024-10-19 01:59] LABS: CREATINE KINASE MB FRACTION 7.9 ng/mL (0.5-3.6)
[2024-10-19 03:10] LABS: CHLORIDE 103 mEq/L (98-107); POTASSIUM 6.1 mEq/L (3.5-5.1); SODIUM 134 mEq/L (136-145)
[2024-10-19 03:11] LABS: CARBON DIOXIDE 21 mEq/L (21-32)
[2024-10-19 03:12] LABS: CALCIUM 6.1 mg/dL (8.7-10.4)
[2024-10-19 03:16] LABS: GLUCOSE 360 mg/dL (70-105)
[2024-10-19 03:17] LABS: UREA NITROGEN BLOOD 69 mg/dL (9-23)
[2024-10-19 03:19] LABS: CREATININE 5.2 mg/dL (0.6-1.0); PHOSPHORUS 4.3 mg/dL (2.5-4.9)
[2024-10-19] MEDS: INSULIN REGULAR 100U/100ML PMX 100 ML IV SCH (04:39)
[2024-10-19 05:41] LABS: EOSINOPHILS % 0.2 % (0.0-5.0); HEMATOCRIT. 24.3 % (36.0-48.0); HEMOGLOBIN. 7.5 g/dL (12.0-16.0); MEAN CORPUSCULAR HEMOGLOBIN 26.9 pg (28.0-32.0); MEAN CORPUSCULAR HGB CONC 31.1 g/dL (31.0-37.0); MEAN CORPUSCULAR VOLUME 86.6 fL (81.0-99.0); MEAN PLATELET VOLUME 10.7 fl (7.4-10.4); RED BLOOD CELL COUNT 2.81 mill/uL (4.2-5.4); RED CELL DISTRIBUTION WIDTH 14.7 % (11.6-14.6); WHITE BLOOD COUNT 21.6 x1000/uL (4.5-11.0)
[2024-10-19 05:53] LABS: DIFFERENTIAL COMMENT 1
[2024-10-19 05:56] LABS: CHLORIDE 103 mEq/L (98-107); POTASSIUM 5.4 mEq/L (3.5-5.1); SODIUM 136 mEq/L (136-145)
[2024-10-19 05:57] LABS: BASOPHILS % 0.2 % (0.0-2.0); MONOCYTES % 8.1 % (2.0-8.0); NEUTROPHILS % 73.5 % (40.0-76.0); PLATELET 39 x1000/uL (130-400)
[2024-10-19 05:59] LABS: CALCIUM 6.3 mg/dL (8.7-10.4); CARBON DIOXIDE 22 mEq/L (21-32)
[2024-10-19 06:01] LABS: CREATINE KINASE MB FRACTION 7.6 ng/mL (0.5-3.6)
[2024-10-19 06:04] LABS: GLUCOSE 231 mg/dL (70-105); UREA NITROGEN BLOOD 73 mg/dL (9-23)
[2024-10-19 06:05] LABS: ALANINE AMINOTRANSFERASE 63 IU/L (10-49)
[2024-10-19 06:06] LABS: ALBUMIN 2.1 g/dL (3.2-4.8); ASPARTATE AMINOTRANSFERASE 169 IU/L (<34); BILIRUBIN DIRECT 0.6 mg/dL (<=3.0); BILIRUBIN TOTAL 1.1 mg/dL (0.1-1.0); PROTEIN TOTAL 5.3 g/dL (6.0-8.3)
[2024-10-19 06:08] LABS: CREATININE 5.4 mg/dL (0.6-1.0)
[2024-10-19] MEDS: SODIUM ZIRCONIUM CYCLOSILICATE 10GM/PACKET NG NR (06:48)
[2024-10-19 08:21] LABS: HEMATOCRIT. 24.8 % (36.0-48.0); HEMOGLOBIN. 7.7 g/dL (12.0-16.0); MEAN CORPUSCULAR HEMOGLOBIN 27.1 pg (28.0-32.0); MEAN CORPUSCULAR VOLUME 87.4 fL (81.0-99.0); RED BLOOD CELL COUNT 2.84 mill/uL (4.2-5.4); RED CELL DISTRIBUTION WIDTH 14.6 % (11.6-14.6)
[2024-10-19 09:00] LABS: DIFFERENTIAL COMMENT 1
[2024-10-19 09:00] LABS: BG BASE EXCESS -4.7 mmol/L (-2.0-3.0); BG CARBOXYHEMOGLOBIN 2.1 % (0.5-1.5); BG DEOXYHEMOGLOBIN 1.7 % (0.0-5.0); BG FRACTION INSPIRED OXYGEN 70; BG HCO3 ACT 20.2 mmol/L (21.0-28.0); BG METHEMOGLOBIN 2.2 % (0.5-1.5); BG OXYGEN SATURATION 98.2 % (94.0-98.0); BG PH 7.366 (7.350-7.450); BG PO2 105.2 mmHg (83.0-108.0); BG SAMPLE SITE ALINE; BG TOTAL HEMOGLOBIN 7.8 g/dL (12.0-16.0); BG TOTAL RESPIRATORY RATE 32 b/min; BG VENT MODE VENT - AC
[2024-10-19 09:04] LABS: PLATELET 37 x1000/uL (130-400)
[2024-10-19] MEDS: PHENYTOIN SODIUM 1,000 MG in SODIUM CHLORIDE 0.9% 100 ML IV NR (09:23)
[2024-10-19] MEDS: HEPARIN 25,000 UNITS PREMIX 250 ML IV SCH (09:25)
[2024-10-19] MEDS: DEXT 5%/0.9% NACL 1,000 ML IV SCH (09:25)
[2024-10-19] MEDS: LACTATED RINGERS 1,000 ML IV NR (09:26)
[2024-10-19] MEDS: FAMOTIDINE 20MG/2ML VIAL IV SCH (09:26)
[2024-10-19] MEDS: PHENYTOIN SODIUM 100MG/2ML VIAL IV SCH (13:42)
[2024-10-19 13:49] LABS: NUCLEATED RED BLOOD CELLS 2 /100 WBC
[2024-10-19] MEDS: MAGNESIUM 1 G PREMIX 100 ML IV NR (13:49)
[2024-10-19 13:50] LABS: PLATELET ESTIMATE MARKEDLY DECREASED
[2024-10-19] MEDS: SODIUM CHLORIDE 0.45% 1,000 ML IV SCH (16:04)
[2024-10-19 22:24] LABS: POTASSIUM 5.9 mEq/L (3.5-5.1)
[2024-10-19 22:25] LABS: CALCIUM 6.4 mg/dL (8.7-10.4)
[2024-10-19 22:30] LABS: CREATININE 4.8 mg/dL (0.6-1.0)
[2024-10-19 22:32] LABS: CREATINE KINASE MB FRACTION 6.8 ng/mL (0.5-3.6)
[2024-10-19] MEDS ORDERED: IBUPROFEN 200MG TABLET PO ONE (23:30)
[2024-10-19] MEDS ORDERED: IBUPROFEN 100MG/5ML UDC GT NR (23:45)
[2024-10-20] VITALS (12 sets, daily range): BP systolic 32–141; BP diastolic 16–69; PULSE 92–150; RESP 23–32; TEMP 103.8–104.4; O2SAT 90–92
[2024-10-20] MEDS: DOPAMINE 400MG/250ML PREMIX 250 ML IV PRN (00:45)
[2024-10-20] MEDS: SODIUM BICARBONATE 8.4% 50MEQ/50ML SYR IV NR (01:55)
[2024-10-20] MEDS ORDERED: SODIUM BICARBONATE 150 MEQ in SODIUM CHLORIDE 0.45% 850 ML IV SCH (02:15)
[2024-10-20] MEDS ORDERED: SODIUM BICARBONATE 8.4% 50MEQ/50ML SYR IV NR (02:30)
== END 2024-10-20 05:15 | DRG 720 ==
LOC: ER 21:08 → MICUSO 22:59 → EDBD 22:59
PROVIDERS: ADMIT Internal Medicine; ATTEND Internal Medicine
PROC: 5A1955Z Respiratory Ventilation, Greater than 96 Consecutive Hours (ICD-10-PCS; principal; 2024-10-16)
PROC: 0BH18EZ Insertion of Endotracheal Airway into Trachea, Via Natural or Artificial Opening Endoscopic (ICD-10-PCS; 2024-10-16)
PROC: 06HY33Z Insertion of Infusion Device into Lower Vein, Percutaneous Approach (ICD-10-PCS; 2024-10-16)
PROC: B54BZZA Ultrasonography of Right Lower Extremity Veins, Guidance (ICD-10-PCS; 2024-10-16)
PROC: 04HY32Z Insertion of Monitoring Device into Lower Artery, Percutaneous Approach (ICD-10-PCS; 2024-10-16)
PROC: 05HY33Z Insertion of Infusion Device into Upper Vein, Percutaneous Approach (ICD-10-PCS; 2024-10-17)
PROC: B54MZZA Ultrasonography of Right Upper Extremity Veins, Guidance (ICD-10-PCS; 2024-10-17)
PROC: 4A00X4Z Measurement of Central Nervous Electrical Activity, External Approach (ICD-10-PCS; 2024-10-17)
PROC: 05HN33Z Insertion of Infusion Device into Left Internal Jugular Vein, Percutaneous Approach (ICD-10-PCS; 2024-10-18)
PROC: B544ZZA Ultrasonography of Left Jugular Veins, Guidance (ICD-10-PCS; 2024-10-18)
PROC: 5A1D70Z Performance of Urinary Filtration, Intermittent, Less than 6 Hours Per Day (ICD-10-PCS; 2024-10-18)
PROC: 5A1D70Z Performance of Urinary Filtration, Intermittent, Less than 6 Hours Per Day (ICD-10-PCS; 2024-10-19)
PROC: 5A12012 Performance of Cardiac Output, Single, Manual (ICD-10-PCS; 2024-10-20)
DX: A41.9 Sepsis, unspecified organism (principal); J96.01 Acute respiratory failure with hypoxia; N17.0 Acute kidney failure with tubular necrosis; G92.8 Other toxic encephalopathy; R65.21 Severe sepsis with septic shock; E11.01 Type 2 diabetes mellitus with hyperosmolarity with coma; I82.411 Acute embolism and thrombosis of right femoral vein; E87.20 Acidosis, unspecified; K92.2 Gastrointestinal hemorrhage, unspecified; R56.9 Unspecified convulsions; I21.A1 Myocardial infarction type 2; D75.89 Other specified diseases of blood and blood-forming organs; E87.5 Hyperkalemia; D64.9 Anemia, unspecified; D69.6 Thrombocytopenia, unspecified; E66.01 Morbid (severe) obesity due to excess calories; H55.00 Unspecified nystagmus; K80.20 Calculus of gallbladder without cholecystitis without obstruction; L03.317 Cellulitis of buttock; M62.82 Rhabdomyolysis; M46.28 Osteomyelitis of vertebra, sacral and sacrococcygeal region; L89.899 Pressure ulcer of other site, unspecified stage; N39.0 Urinary tract infection, site not specified; E79.0 Hyperuricemia without signs of inflammatory arthritis and tophaceous disease; E87.0 Hyperosmolality and hypernatremia; I46.9 Cardiac arrest, cause unspecified; E83.39 Other disorders of phosphorus metabolism; I47.20 Ventricular tachycardia, unspecified; Z68.43 Body mass index [BMI] 50.0-59.9, adult; Z78.1 Physical restraint status; Z79.4 Long term (current) use of insulin; Z99.11 Dependence on respirator [ventilator] status; Z59.00 Homelessness unspecified; Z22.322 Carrier or suspected carrier of Methicillin resistant Staphylococcus aureus
CPT/HCPCS: 31500; 36415; 36556; 36573; 36600; 71045; 72192; 74176; 76700; 76705; 76770; 76937; 78580; 80048; 80051; 80053; 80061; 80076; 80202; 80305; 80320; 81003; 82010; 82140; 82248; 82270; 82330; 82375; 82550; 82553; 82607; 82746; 82805; 82962; 83036; 83605; 83735; 83880; 83930; 83935; 84100; 84145; 84439; 84443; 84478; 84484; 84550; 85014; 85018; 85025; 85027; 85044; 85379; 85384; 86705; 86709; 86850; 86900; 87070; 87077; 87106; 87186; 87340; 90935; 92950; 93005; 93306; 93922; 93970; 94002; 94003; 94070; 94640; 94664; 99291; A4606; A6261; A9500; C1725; C1752; C1769; C1892; J0610; J0696; J1165; J1265; J1450; J1644; J1720; J1815; J1953; J2003; J2060; J2185; J2250; J2371; J2470; J2704; J3010; J3370; J3475; J3480; J3490; J7030; J7050; J7060; J7070; G0480; J0131